=== PATIENT | female | born 1995 | race African-American/Black ===

== ENCOUNTER 2019-10-07 10:09 | Emergency (ER) | payer OTHER, MEDICAID ==
[~2019-10-07] VITALS: Ht 162.6 cm; Wt 83.9 kg
[2019-10-07 11:51] VITALS: BP 129/76
[2019-10-07] MEDS ORDERED: cefTRIAXone SOD 1,000 MG VL IM ONE (12:00)
== END 2019-10-07 12:31 | disposition home or self-care (01) ==
LOC: ER 10:09
DX: J03.90 Acute tonsillitis, unspecified (principal); F17.210 Nicotine dependence, cigarettes, uncomplicated
CPT/HCPCS: 96372; 99283; J0696

== ENCOUNTER 2019-11-19 18:26 | Emergency (ER) | payer MEDICAID, OTHER ==
[~2019-11-19] VITALS: Ht 157.5 cm; Wt 95.3 kg
[2019-11-19 22:18] VITALS: BP 121/74
[2019-11-19] MEDS ORDERED: KETOROLAC TROMETH 60MG/2ML VIAL IM ONE (23:00)
[2019-11-19] MEDS ORDERED: methylPREDNISolone SOD SUCC 125 MG/2 ML VL IM ONE (23:00)
== END 2019-11-19 23:57 | disposition home or self-care (01) ==
LOC: ER 18:26
DX: M54.16 Radiculopathy, lumbar region (principal); M54.41 Lumbago with sciatica, right side; M62.830 Muscle spasm of back
CPT/HCPCS: 72100; 96372; 99284; J1885; J2930